=== PATIENT | female | born 2000 | race Hispanic/Latino ===

== ENCOUNTER 2023-12-25 20:35 | Emergency (ER) | payer BC, OTHER ==
[2023-12-25] MEDS ORDERED: ACETAMINOPHEN 500 MG TAB ONE (21:23)
[2023-12-25 22:04] LABS: Specific Gravity 1.015 (1.005-1.030)
[2023-12-25 22:07] LABS: Specific Gravity 1.016 (1.005-1.030); Sqamous Epithelial <5 /HPF (None Seen); Urine Bacteria None Seen /HPF (<20); Urine Bilirubin NEGATIVE (Negative); Urine Blood 3+ (Negative); Urine Clarity Turbid (Clear); Urine Color Yellow (Yellow); Urine Culture Reflex Order NOT NEEDED; Urine Glucose NEGATIVE (Negative); Urine Ketones TRACE (Negative); Urine Microscopic Reflex YN ORDER UMIC; Urine Mucus Slight /HPF (None Seen); Urine Nitrite NEGATIVE (Negative); Urine Protein TRACE (Negative); Urine RBC >50 /HPF (None Seen); Urine Urobilinogen 1+ (Normal); Urine WBC <5 /HPF (<5); Urine pH 6.5 (5.0-7.0)
[2023-12-25] MEDS ORDERED: dexAMETHasone 10 MG/ML VIAL ONE (22:14)
[2023-12-25] MEDS ORDERED: NA CHLORIDE 0.9% 2,000 ML ONE (22:14)
[2023-12-25 22:34] LABS: Absolute Lymphocytes (CBC) 1.3 K/uL (0.7-4.9); Absolute Monocytes 0.4 K/uL (0.1-1.3); Absolute Neutrophil 3.2 K/uL (1.8-8.0); Basophils % 0.4 % (0-1.3); Hemoglobin 13.2 g/dL (12.0-15.0); MCH 32.4 pg (27.0-35.0); MCHC 36.8 g/dL (32.0-36.0); MCV 87.9 fL (80-100); MPV 9.6 fL (7.6-11.3); Monocytes % 8.3 % (3.3-12.3); Neutrophils % 65.3 % (41.7-73.7); Nucleated Red Blood Cells % 0.2 % (0-0); Platelets 146 thou/uL (152-406); RBC Red Blood Cell Count 4.09 M/uL (3.86-4.86); Red Cell Distribution Width 14.3 % (12.1-15.2)
[2023-12-25 22:36] LABS: PTT, Activated Partial Thromb 33.3 SECONDS (24.3-36.9); Protime INR 1.17
[2023-12-25 22:48] LABS: Albumin/Globulin Ratio 0.8 (1.1-1.8); Bilirubin Total 2.1 mg/dL (0.2-1.0); Globulin 3.7 g/dL (2.3-3.5); Protein, Total 6.7 g/dL (6.4-8.2)
[2023-12-25 23:00] LABS: Monoscreen NEG (NEG)
[2023-12-25] MEDS ORDERED: POTASSIUM 25 MEQ EFFERV TAB ONE (23:01)
--- NOTE | 2023-12-25 23:34 | ER ---
Nurse's Notes [facility] Name: Kathleen Kraft Age: 23 yrs Sex: Female : 2000 Arrival Date: 12/25/2023 Time: 20:35 Bed 10 Private MD: Diagnosis: Acute tonsillitis, unspecified Presentation: 12/24 21:11 Chief complaint: Patient states: Sunday night started getting fever and chills. vc1 Alternating between Tylenol and ibuprofen and can't break the fever. My lymph nodes are enlarged and my tonsil looked like I had an abscess. Having trouble swallowing saliva. Coronavirus screen: Client denies travel out of the [place] in the last 14 days. chills, fatigue, fever, sore throat, Client presents with at least one sign or symptom that may indicate coronavirus-19. Ebola Screen: Patient negative for fever greater than or equal to 101.5 degrees Fahrenheit, and additional compatible Ebola Virus Disease symptoms Patient denies exposure to infectious person. Patient denies travel to an Ebola-affected area in the 21 days before illness onset. No symptoms or risks identified at this time. Initial Sepsis Screen: Does the patient meet any 2 criteria? Temp <36.0*C (96.8*F)) or > 38.3*C (100.9*F). HR > 90 bpm. No. Patient's initial sepsis screen is negative. Does the patient have a suspected source of infection? No. Patient's initial sepsis screen is negative. Risk Assessment: Do you want to hurt yourself or someone else?. Onset of symptoms was December 21, 2023. Care prior to arrival: None. Activity prior to arrival: None. Mechanism of Injury: No Mechanism of Injury. Transition of care: patient was not received from another setting of care. 21:11 Method Of Arrival: Ambulatory vc1 21:11 Acuity: CADE 3 vc1 Triage Assessment: 21:15 General: Appears in no apparent distress. uncomfortable, slender, Behavior is calm, vc1 cooperative, appropriate for age. General: Reports chills for fever for feeling ill for. Pain: Complains of pain in throat. EENT: Reports pain when swallowing. Neuro: Level of Consciousness is awake, alert, obeys commands, Oriented to person, place, time, situation, Appropriate for age. Cardiovascular: Capillary refill < 3 seconds Patient's skin is warm and dry. Respiratory: Airway is patent Respiratory effort is even, unlabored, Respiratory pattern is regular, symmetrical. Derm: Skin is intact, is healthy with good turgor, Skin is dry, Skin is normal, Skin temperature is warm. 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 - Infectious Disease History:: Denies. - Social history:: Smoking status: Patient denies any tobacco usage or history of. Screenin:28 [facility] ED Fall Risk Assessment (Adult) History of falling in the last 3 months, me1 including since admission No falls in past 3 months (0 pts) Confusion or Disorientation No (0 pts) Intoxicated or Sedated No (0 pts) Impaired Gait No (0 pts) Mobility Assist Device Used No (0 pt) Altered Elimination No (0 pt) Score/Fall Risk Level 0 - 2 = Low Risk Maintained a safe environment, Provided non-skid footwear, Hourly rounding (assess needs \T\ fall precautionary measures) done. Abuse screen: Denies threats or abuse. Nutritional screening: No deficits noted. Tuberculosis screening: No symptoms or risk factors identified. Assessment: 21:28 General: Appears ill, well groomed, well developed, well nourished, Behavior is calm, me1 cooperative, appropriate for age, Reports Sunday night started getting fever and chills. Alternating between Tylenol and ibuprofen and can't break the fever. My lymph nodes are enlarged and my tonsil looked like I had an abscess. Having trouble swallowing saliva. Pain: Complains of pain in throat Pain does not radiate. Pain currently is 6 out of 10 on a pain scale. Quality of pain is described as tender, Pain began gradually, 2-3 days ago. Is continuous. Neuro: Level of Consciousness is awake, alert, obeys commands, Oriented to person, place, time, situation, Appropriate for age. Cardiovascular: Patient's skin is warm and dry. Respiratory: Airway is patent Respiratory effort is even, unlabored, Respiratory pattern is regular, symmetrical, Breath sounds are clear bilaterally. GI: No signs and/or symptoms were reported involving the gastrointestinal system. : No signs and/or symptoms were reported regarding the genitourinary system. EENT: Throat is reddened has patchy exudate. Derm: Skin is intact, is healthy with good turgor, Skin is pink, warm \T\ dry. Musculoskeletal: No deficits noted. Vital Signs: 21:11 Weight 61.23 kg; Height 5 ft. 4 in. ; Pain 7/10; vc1 21:16 BP 139 / 91; Pulse 135; Resp 20; Temp 101.2; Pulse Ox 99% ; vc1 22:00 BP 134 / 82; Pulse 109; Resp 15; Pulse Ox 100% ; me1 22:58 BP 130 / 74; Pulse 102; Resp 16; Temp 99.1; Pulse Ox 100% ; me1 23:48 BP 121 / 82; Pulse 98; Resp 15; Temp 98.9; Pulse Ox 100% ; me1 21:11 Body Mass Index 23.17 (61.23 kg, 162.56 cm) vc1 21:11 Pain Scale: Adult vc1 ED Course: 20:08 Initial lab(s) drawn, by ma, sent to lab. First set of blood cultures drawn by ma. me1 20:37 Patient arrived in ED. jj6 20:40 [facility]onya Beltrán [facility]-C [facility]. kb 20:40 Nicolas Escalona MD is Attending Physician. kb 21:13 Sultana Avila, AILEEN is Primary Nurse. me1 21:14 Triage completed. vc1 21:15 Arm band placed on right wrist. vc1 21:28 Patient has correct armband on for positive identification. Bed in low position. Call [facility] light in reach. Side rails up X 1. Provided Education on: POC. Verbalized understanding. . Client placed on continuous cardiac and pulse oximetry monitoring. NIBP monitoring applied. Pulse ox on. NIBP on. 21:28 No provider procedures requiring assistance completed. me1 21:50 Test, Urine Sent. me1 21:50 Urine collected: clean catch specimen, cloudy, alber colored. me1 21:51 Urinalysis w/ reflexes Sent. me1 22:14 Inserted saline lock: 22 gauge in right antecubital area, using aseptic technique. me1 22:14 EKG done, by ED staff, reviewed by Donya GUIDO. me1 22:15 CMP Sent. me1 22:15 Lactate w/ 2H reflex if indic. Sent. me1 22:15 Protime (+inr) Sent. me1 22:15 Ptt, Activated Sent. me1 22:15 Blood Culture Adult (2) Sent. me1 22:15 CBC with Diff Sent. me1 22:15 [place] Screen Profile Sent. me1 22:16 Second set of blood cultures drawn by me. me1 22:50 CT Soft Tissue Neck W/contr In Process Unspecified. EDMS 23:49 IV discontinued, intact, bleeding controlled, No redness/swelling at site. Pressure me1 dressing applied. Administered Medications: 21:38 CANCELLED (Duplicate Order): ns 0.9% 1000 ml IV at 1000 ml once kb 22:16 Drug: Acetaminophen PO 1000 mg PO once Route: PO; me1 22:58 Follow up: Response: No adverse reaction; Temperature is decreased me1 22:23 Drug: Decadron - Dexamethasone IVP 10 mg IVP once Route: IVP; Site: right antecubital; me1 23:50 Follow up: Response: No adverse reaction me1 22:23 Drug: NS 0.9% IV (30 ml/kg) 30 ml/kg IV at bolus once; Sepsis Protocol Route: IV; Rate: me1 bolus; Site: right antecubital; 23:50 Follow up: Response: No adverse reaction; IV Status: Completed infusion; IV Intake: me1 1000ml 23:06 Drug: Potassium PO Effervescent Tablet 50 mEq PO once; dissolve in 4 ounces of water or me1 juice Route: PO; 23:44 Follow up: Response: No adverse reaction me1 Medication: 21:28 VIS not applicable for this client. me1 Intake: 23:50 IV: 1000ml; Total: 1000ml. me1 Outcome: 23:34 Discharge ordered by . latonya 23:49 Discharged to home ambulatory, with family, me1 23:49 Condition: stable 23:49 Discharge instructions given to patient, Instructed on discharge instructions, follow up and referral plans. Demonstrated understanding of instructions, follow-up care, 23:53 Patient left the ED. me1 Signatures: Dispatcher [employer] EDDonya Salas, COMMERCIAL REVIEW APPRAISER-C COMMERCIAL REVIEW APPRAISER-Ckb Leslie Zelaya jj6 Martha Rice, RN RN vc1 Sultana Avila RN RN me1 Corrections: (The following items were deleted from the chart) 21:16 21:11 Chief complaint: Patient states: Harish night started getting fever and chills. me1 Alternating between Tylenol and ibuprofen and can't break the fever. My lymph nodes are enlarged and my tonsil looked like I had an abscess. Having trouble swallowing saliva. vc1 21:19 21:11 Initial Sepsis Screen: Does the patient meet any 2 criteria? No. Patient's vc1 initial sepsis screen is negative. Does the patient have a suspected source of infection? No. Patient's initial sepsis screen is negative. vc1 21:28 21:11 Chief complaint: Patient states: Harish night started getting fever and chills. me1 Alternating between Tylenol and ibuprofen and can't break the fever. My lymph nodes are enlarged and my tonsil looked like I had an abscess. Having trouble swallowing saliva. me1
--- NOTE | 2023-12-25 23:34 | EDPHYS ---
Physician Documentation [facility] Name: Kathleen Kraft Age: 23 yrs Sex: Female : 2000 Arrival Date: 12/25/2023 Time: 20:35 Bed 10 Private MD: ED Physician Nicolas Escalona HPI: 12/24 20:48 This 23 yrs old Female presents to ER via Unassigned with complaints of Sore kb Throat, Swollen Glands. 20:48 Pt is a 23 year old female who presents for fever that started 5 days ago with kb bodyaches, chills, and sore throat. Denies n/v/d, shortness of breath, cough, congestion. 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 - Infectious Disease History:: Denies. - Social history:: Smoking status: Patient denies any tobacco usage or history of. ROS: 20:51 Constitutional: As per HPI kb Exam: 20:51 Constitutional: This is a well developed, well nourished patient who is awake, alert, kb and in no acute distress. Head/Face: Normocephalic, atraumatic. Cardiovascular: Regular rate Respiratory: Respirations even and unlabored. No increased work of breathing. Talking in full sentences Skin: Warm, dry with normal turgor. Normal color. MS/ Extremity: Pulses equal, no cyanosis. Neurovascular intact. Full, normal range of motion. Neuro: Awake and alert, GCS 15, oriented to person, place, time, and situation. Moves all extremities. Normal gait. 20:51 ENT: Posterior pharynx: Airway: normal, no evidence of obstruction, Tonsils: enlarged on the right, with erythema, with exudate, Uvula: normal, midline, swelling, that is moderate, Vital Signs: 21:11 Weight 61.23 kg; Height 5 ft. 4 in. ; Pain 7/10; vc1 21:16 BP 139 / 91; Pulse 135; Resp 20; Temp 101.2; Pulse Ox 99% ; vc1 22:00 BP 134 / 82; Pulse 109; Resp 15; Pulse Ox 100% ; me1 22:58 BP 130 / 74; Pulse 102; Resp 16; Temp 99.1; Pulse Ox 100% ; me1 23:48 BP 121 / 82; Pulse 98; Resp 15; Temp 98.9; Pulse Ox 100% ; me1 21:11 Body Mass Index 23.17 (61.23 kg, 162.56 cm) vc1 21:11 Pain Scale: Adult vc1 MDM: 20:40 Patient medically screened. kb 20:55 Data reviewed: vital signs, nurses notes. kb 23:33 Differential diagnosis: pharyngitis, tonsillitis, COORDINATOR OF LIBRARY SERVICES, strep. Counseling: I had a kb detailed discussion with the patient and/or guardian regarding the historical points, exam findings, and any diagnostic results supporting the discharge/admit diagnosis, lab results, radiology results, the need for outpatient follow up, a family practitioner, to return to the emergency department if symptoms worsen or persist or if there are any questions or concerns that arise at home. ED course: Pt was prescribed augmentin earlier today. strep was negative. 12/24 20:53 Order name: CBC with Diff; Complete Time: 22:38 kb 12/24 20:53 Order name: [place] Screen Profile; Complete Time: 23:02 kb 12/24 20:53 Order name: Test, Urine; Complete Time: 22:14 kb 12/24 20:53 Order name: Urinalysis w/ reflexes; Complete Time: 22:14 kb 12/24 21:38 Order name: Blood Culture Adult (2) kb 12/24 21:38 Order name: CMP; Complete Time: 22:50 kb 12/24 21:38 Order name: Lactate w/ 2H reflex if indic.; Complete Time: 22:55 kb 12/24 21:38 Order name: Protime (+inr); Complete Time: 22:38 kb 12/24 21:38 Order name: Ptt, Activated; Complete Time: 22:38 kb 12/24 20:53 Order name: CT Soft Tissue Neck W/contr kb 12/24 20:53 Order name: IV Start; Complete Time: 22:15 kb 12/24 21:38 Order name: Accucheck; Complete Time: 23:00 kb 12/24 21:38 Order name: Cardiac monitoring; Complete Time: 23:48 kb 12/24 21:38 Order name: EKG - Nurse/Tech; Complete Time: 23:48 kb 12/24 21:38 Order name: IV Saline Lock - Large Bore; Complete Time: 22:15 kb 12/24 21:38 Order name: Labs collected and sent; Complete Time: 22:15 kb 12/24 21:38 Order name: O2 Per Protocol; Complete Time: 22:15 kb 12/24 21:38 Order name: O2 Sat Monitoring; Complete Time: 22:15 kb 12/24 21:38 Order name: Vital Signs; Complete Time: 22:15 kb 12/24 22:50 Order name: Vital Signs; Complete Time: 22:59 kb Administered Medications: 21:38 CANCELLED (Duplicate Order): ns 0.9% 1000 ml IV at 1000 ml once kb 22:16 Drug: Acetaminophen PO 1000 mg PO once Route: PO; me1 22:58 Follow up: Response: No adverse reaction; Temperature is decreased me1 22:23 Drug: Decadron - Dexamethasone IVP 10 mg IVP once Route: IVP; Site: right antecubital; me1 23:50 Follow up: Response: No adverse reaction me1 22:23 Drug: NS 0.9% IV (30 ml/kg) 30 ml/kg IV at bolus once; Sepsis Protocol Route: IV; Rate: me1 bolus; Site: right antecubital; 23:50 Follow up: Response: No adverse reaction; IV Status: Completed infusion; IV Intake: me1 1000ml 23:06 Drug: Potassium PO Effervescent Tablet 50 mEq PO once; dissolve in 4 ounces of water or me1 juice Route: PO; 23:44 Follow up: Response: No adverse reaction me1 Disposition: 12/25 22:12 Co-signature as Attending Physician, Nicolas Escalona MD I agree with the assessment sp4 and plan of care. I reviewed the patient's care provided by the Advanced Practice Provider and agree with the diagnosis and treatment plan. Disposition Summary: 12/25/23 23:34 Discharge Ordered Notes: Location: Home kb Condition: Stable kb Diagnosis - Acute tonsillitis, unspecified kb Followup: kb - With: Emergency Department - When: As needed - Reason: Worsening of condition Followup: kb - With: Private Physician - When: 2 - 3 days - Reason: Recheck today's complaints, Continuance of care, Re-evaluation by your physician Discharge Instructions: - Discharge Summary Sheet kb - Tonsillitis, [id number] kb Forms: - Medication Reconciliation Form kb - Antibiotic Education kb - Prescription Opioid Use kb - Patient Portal Instructions kb - Leadership Thank You Letter kb Signatures: Dispatcher [employer] EDLA Donya Beltrán, POWERHOUSE MECHANIC SUPERVISOR-C YARELIS-Martha Ortez, RN RN vc1 Nicolas Escalona MD MD sp4 Sultana Avila RN RN me1 Corrections: (The following items were deleted from the chart) 12/24 20:53 20:53 CBC+H.LAB.BRZ ordered. EDMS EDMS 20:53 20:53 MONO SCREEN PROFILE+I.LAB.BRZ ordered. EDMS EDMS 20:53 20:53 Test, Urine+UC.LAB.BRZ ordered. EDMS EDMS 20:53 20:53 Urinalysis+U.LAB.BRZ ordered. EDMS EDMS 20:53 20:53 Soft Tissue Neck W/Contr+CT.RAD.BRZ ordered. EDMS EDMS 20:55 20:48 Pt is a 23 year old female who presents for fever that started 5 days ago with kb bodyaches, chills, and sore throat. . kb 21:38 20:53 NS 0.9% IV 1000 ml IV at 1000 ml once ordered. kb kb 21:39 21:39 BLOOD CULTURE*+BA.LAB.BRZ ordered. EDMS EDMS 21:39 21:39 COMPREHENSIVE METABOLIC PANEL+C.LAB.BRZ ordered. EDMS EDMS 21:39 21:39 LACTATE+C.LAB.BRZ ordered. EDMS EDMS 21:39 21:39 PROTIME (+INR)+COAG.LAB.BRZ ordered. EDMS EDMS 21:39 21:39 PTT, ACTIVATED+COAG.LAB.BRZ ordered. EDMS EDMS 22:10 20:53 BASIC METABOLIC PANEL+C.LAB.BRZ ordered. EDMS EDMS
[2023-12-26 01:29] VITALS: O2SAT 100
[2023-12-26 01:31] VITALS: BP 121/82; TEMP 98.9
--- NOTE | 2023-12-26 08:23 | RAD REPORT ---
EXAMINATION: CT NECK WITH IV CONTRAST INDICATION: Female, 23 years old, SWELLING COMPARISON(S): None. TECHNIQUE: CT acquisition of the neck following the administration of IV contrast. Coronal and sagitt al reformatted images provided. This exam was performed according to departmental dose-optimization program which includes automated exposure control, adjustment of the mA and/or kV according to patient size, and/or use of iterative reconstruc tion technique. FINDINGS: Aerodigestive tract: Heterogeneous enhancement of the palatine tonsils with right greater than left e nlargement. Hypodense unorganized fluid extends along the right parapharyngeal space resulting in effacement of the right p iriform recess. No evident fluid collection. Soft tissues: Right parapharyngeal fluid as above. No evidence of deep space fluid. Asymmetric subcut aneous stranding along and within the right sternocleidomastoid muscle along the majority of the cervical spine. Salivary glands: Parotid and submandibular glands are normal. Oral cavity: Unremarkable. Sinuses/Mastoids: No significant disease. Lymph nodes: Asymmetrically enlarged right level II and III lymph nodes. Thyroid: Unremarkable. Vascular: Unremarkable. Orbits: Unremarkable. Brain: Imaged intracranial structures are normal. Bones: No acute findings. Upper chest: No acute findings. IMPRESSION: 1. CT findings compatible with right greater than left palatine tonsillitis. Inflammatory fluid/phleg mon extends along the right parapharyngeal space to result in mild mass effect on the right hypopharyngeal airway. No evidence of retropharyngeal fluid or abscess. 2. Superficial extent of inflammation involving the right sternocleidomastoid muscle and surrounding soft tissues. Multiple stations superior cervical chain lymphadenopathy. Electronically signed by: Vasyl Odom MD 12/25/2023 11:16 PM CDT RP Due to temporary technical issues with the PACS/Data Elite reporting system, reports are being neo d by the in-house radiologist without review as a courtesy to ensure prompt reporting the interpreting radiologist is fully responsible for the content of the report. Transcribed Date/Time: 12/26/2023 8:23 AM
== END 2023-12-25 23:53 | disposition home or self-care (01) ==
LOC: ER 20:35
DX: J03.90 Acute tonsillitis, unspecified (principal)
CPT/HCPCS: 87040 ×2; 85025; 81001; 36415; 86308; 81025; 85610; 83605; 85730; 80053; 70491; Q9967; J1100; J7030; 96365; 96375; 99284